=== PATIENT | male | born 1980 | race Caucasian/White ===

== ENCOUNTER 2018-10-09 21:33 | Inpatient (IN) ==
[2018-10-09] MEDS ORDERED: Aspirin 81 MG TAB.CHEW PO STA (22:08)
--- NOTE | 2018-10-09 22:22 | Emergency Department Note ---
Disposition Clinical Impression: Elevated troponin Disposition: Admitted As Inpatient Condition: Good Time of Disposition: 00:36 General Adult HPI - General Chief complaint: ED Chest Pain Stated complaint: Chest Pain/SNYDER/HTN Time Seen by Provider: 10/09/18 22:09 Source: patient Limitations: no limitations Nursing Notes Reviewed: Yes Vital Signs Reviewed: Yes - History of Present Illness HPI Narrative: 38-year-old male presenting to [facility] ED for one day history of headache associated with hypertension. Patient states that he has long-standing history of hypertension with recurrent headaches approximately once a week for the past 2 years. She states that he has past medical history of high blood pressure, sleep apnea, as well as chronic headaches denies any other past medical/surgical history no known drug allergies, is currently on no medications. Patient minutes to long-standing cardiac and cerebrovascular history as his grandfather of a cerebral aneurysm at 65 years old and his father had several heart attacks before having a quadruple bypass in his 40s. Patient noted to have blood pressure at home in the 180s systolic over 110 diastolic range with a pulse in the 60s. Patient states he was noted to come to the ED but was encouraged by his to do so. Onset (ago): hour(s) Location: head Pain Severity: moderate Pain Scale: 5 Quality: stabbing Consistency: intermittent Worsens with: rest - Related Data Previous Rx's Medication Instructions Recorded Meclizine [Antivert] 25 mg PO TID PRN #20 tablet 12/21/15 Ondansetron ODT [Zofran ODT] 4 mg SL Q8HR #14 tab.rapdis 12/21/15 Allergies Allergy/AdvReac Type Severity Reaction Status Date / Time No Known Allergies Allergy Verified 12/21/15 07:42 All systems ED: reviewed and negative except as stated. Review of Systems: As Per HPI Past Medical History - Past Medical History Medical history: Reports: no medical history, other Psychiatric history: Reports: no psych history - Social History Smoking Status: Never smoker Smokeless Tobacco Status: No Alcohol use: Reports: occasionally Drug use: Reports: none Physical Exam - General Limitations: no limitations General appearance: alert, in no apparent distress - Head Head exam: atraumatic, normocephalic, normal inspection - Eye Eye exam: Present: normal appearance, PERRL, EOMI. Absent: scleral icterus, conjunctival injection - Neck Neck exam: Present: normal inspection, trachea midline. Absent: thyromegaly - Chest Chest inspection: Present: normal inspection, symmetric chest wall rise - Respiratory Respiratory exam: Present: normal lung sounds bilaterally. Absent: respiratory distress, wheezes, stridor, accessory muscle use, prolonged expiratory phase - Cardiovascular Cardiovascular exam: Present: regular rate, normal rhythm, normal heart sounds, +S1, +S2. Absent: systolic murmur, diastolic murmur, JVD, +S3, +S4 - Abdominal Exam Abdominal exam: Present: soft, Non-Tender, normal bowel sounds. Absent: distention, guarding, rebound, rigidity, organomegaly - Neurological Exam Neurological exam: Present: alert, oriented X3 - Psychiatric Psychiatric exam: Present: normal affect, normal mood - Skin Skin exam: Present: warm, dry, intact, normal color. Absent: rash, cyanosis, diaphoresis, erythema, pallor, mottled Course Course Narrative: Patient with elevated troponin Spoke with Dr. Jay in cardiology who recommended heparinizing patient Confirmed with Dr. Sheridan he would like heparin started in light of patient's history of intermittent recurrent hematochezia Was advised by cardiology that as long as hemoglobin is stable and no active bleed heparin is appropriate for this patient Spoke with patient and regarding admission to the hospital as well as heparinization including risks and benefits Confirmed with patient that no recent episodes of nosebleed, hematochezia, hematuria, melena Patient and verbalize their understanding and agreement with this plan. Vital Signs Temperature 98.5 F 10/09/18 21:48 Pulse Rate 67 10/09/18 21:48 Respiratory Rate 16 10/09/18 21:48 Blood Pressure 177/117 10/09/18 21:48 O2 Sat by Pulse Oximetry 97 10/09/18 21:48 Temperature 98.5 F 10/09/18 21:48 Pulse Rate 62 10/09/18 23:00 Respiratory Rate 16 10/09/18 23:00 Blood Pressure 145/99 10/09/18 23:00 O2 Sat by Pulse Oximetry 97 10/09/18 23:00 Oxygen Delivery Oxygen Delivery Room Air Medical Decision Making - Lab Data Lab results reviewed: Yes I reviewed the patient's lab results. Result diagrams: 10/10/18 00:16 10/09/18 22:11 Lab Results 10/09/18 10/09/1819 Range/Units 22:11 22:11 00:16 WBC 7.6 7.3 (4.3-11.1) K/mcL RBC 4.96 4.93 (4.19-5.50) M/mcL Hgb 14.1 14.0 (12.9-16.9) g/dL Hct 42.9 42.4 (37.5-50.1) % MCV 86.5 86.0 (83.0-100.0) fL MCH 28.4 28.4 (28.0-33.3) pg MCHC 32.9 33.0 (31.6-35.5) g/dL RDW 13.0 13.0 (11.5-14.5) % Plt Count 248 245 (140-400) K/mcL MPV 9.7 9.5 (9.4-12.4) fL Immature Gran % 0.4 (0-4) % Seg Neutrophils % 44.8 % Lymphocytes % 43.5 % Monocytes % 8.7 % Eosinophils % 1.9 % Basophils % 0.7 % Neutrophils # 3.4 (1.6-8.9) K/mcL Lymphocytes # 3.3 (0.6-4.6) K/mcL Monocytes # 0.7 (0.0-1.3) K/mcL Eosinophils # 0.1 (0.0-0.6) K/mcL Basophils # 0.1 (0.0-0.2) K/mcL Sodium 139 (136-145) mEq/L Potassium 3.5 (3.5-5.1) mEq/L Chloride 103 (98-107) mEq/L Carbon Dioxide 29 (23-29) mEq/L BUN 14 (6-20) mg/dL Creatinine 1.08 (0.70-1.30) mg/dL Est GFR ( Amer) > 60 (> 60) Est GFR (Non-Af Amer) > 60 (> 60) BUN/Creatinine Ratio 13 (6-26) Glucose 99 (70-105) mg/dL Calculated Osmolality 289 (280-300) Calcium 9.2 (8.6-10.3) mg/dL Troponin I 0.08 H* (< 0.04) ng/mL - Radiology Data Radiology results reviewed: Yes I reviewed the patient's radiology results. Chest X-Ray 10/09/18 22:01 IMPRESSION: Negative portable study. D/ / Jaylin Rubi Cha, MD / Jaylin Rubi Cha, MD Interpreting Provider: Jaylin Rubi Cha, MD - EKG Data EKG #1 EKG attestation: Yes I reviewed and interpreted this EKG. EKG results narrative: Patient EKG shows a sinus rhythm with a heart rate of 63 bpm, MI interval of 146 ms, QRS duration 112 ms, QT/QTc interval 4-5/435 ms respectively. There are no significant ST segment elevations, depressions, pathologic Q waves, abnormal T waves, or any other signs of acute ischemic change. There are slight ST segment elevations in lead aVL but appear isolated to that lead without reciprocal change.
[2018-10-09 22:50] LABS: Basophils # 0.1 K/mcL (0.0-0.2); Basophils % 0.7 %; Eosinophils # 0.1 K/mcL (0.0-0.6); Eosinophils % 1.9 %; Hematocrit 42.9 % (37.5-50.1); Hemoglobin 14.1 g/dL (12.9-16.9); Immature Granulocytes % 0.4 % (0-4); Lymphocytes # 3.3 K/mcL (0.6-4.6); Lymphocytes % 43.5 %; Mean Corpuscular HGB Conc 32.9 g/dL (31.6-35.5); Mean Corpuscular Hemoglobin 28.4 pg (28.0-33.3); Mean Corpuscular Volume 86.5 fL (83.0-100.0); Mean Platelet Volume 9.7 fL (9.4-12.4); Monocytes # 0.7 K/mcL (0.0-1.3); Monocytes % 8.7 %; Neutrophils # 3.4 K/mcL (1.6-8.9); Platelet Count 248 K/mcL (140-400); Red Blood Count 4.96 M/mcL (4.19-5.50); Segmented Neutrophils % 44.8 %
[2018-10-09 23:11] LABS: BUN/Creatinine Ratio 13 (6-26); Blood Urea Nitrogen 14 mg/dL (6-20); Calcium 9.2 mg/dL (8.6-10.3); Carbon Dioxide 29 mEq/L (23-29); Chloride 103 mEq/L (98-107); Glucose 99 mg/dL (70-105); Osmolality,Calculated 289 (280-300); Potassium 3.5 mEq/L (3.5-5.1); Sodium 139 mEq/L (136-145); eGFR For Non-African Americans > 60 (> 60)
[2018-10-09 23:16] LABS: Troponin I 0.08 ng/mL (< 0.04)
[2018-10-09] MEDS ORDERED: *HR* Heparin 5,000 UNIT/ML VIAL IVP ONE (23:47)
--- NOTE | 2018-10-10 00:08 | Emergency Department Note ---
Disposition Clinical Impression: Elevated troponin Disposition: Admitted As Inpatient Condition: Good Referrals: April Rodriguez MD [Primary Care Provider] - Forms: ED Satisfaction Letter Chest Pain HPI - General Chief Complaint: ED Chest Pain Stated Complaint: Chest Pain/SNYDER/HTN Time Seen by Provider: 10/09/18 22:09 Source: patient Limitations: no limitations - History of Present Illness Severity scale (1-10): 5 - Related Data Previous Rx's Medication Instructions Recorded Meclizine [Antivert] 25 mg PO TID PRN #20 tablet 12/21/15 Ondansetron ODT [Zofran ODT] 4 mg SL Q8HR #14 tab.rapdis 12/21/15 Allergies Allergy/AdvReac Type Severity Reaction Status Date / Time No Known Allergies Allergy Verified 12/21/15 07:42 Chest Pain PMH - Past Medical History Medical history: Reports: no medical history, other Psychiatric history: Reports: no psych history - Social History Smoking Status: Never smoker Alcohol use: Reports: occasionally Drug use: Reports: none Physical Exam - General Limitations: no limitations General appearance: alert, in no apparent distress Course Vital Signs Temperature 98.5 F 10/09/18 21:48 Pulse Rate 67 10/09/18 21:48 Respiratory Rate 16 10/09/18 21:48 Blood Pressure 177/117 10/09/18 21:48 O2 Sat by Pulse Oximetry 97 10/09/18 21:48 Temperature 98.5 F 10/09/18 21:48 Pulse Rate 62 10/09/18 23:00 Respiratory Rate 16 10/09/18 23:00 Blood Pressure 145/99 10/09/18 23:00 O2 Sat by Pulse Oximetry 97 10/09/18 23:00 Oxygen Delivery Oxygen Delivery Room Air Chest Pain - Lab Data Result diagrams: 10/09/18 22:11 10/09/18 22:11 Lab Results 10/09/18 10/09/18 Range/Units 22:11 22:11 WBC 7.6 (4.3-11.1) K/mcL RBC 4.96 (4.19-5.50) M/mcL Hgb 14.1 (12.9-16.9) g/dL Hct 42.9 (37.5-50.1) % MCV 86.5 (83.0-100.0) fL MCH 28.4 (28.0-33.3) pg MCHC 32.9 (31.6-35.5) g/dL RDW 13.0 (11.5-14.5) % Plt Count 248 (140-400) K/mcL MPV 9.7 (9.4-12.4) fL Immature Gran % 0.4 (0-4) % Seg Neutrophils % 44.8 % Lymphocytes % 43.5 % Monocytes % 8.7 % Eosinophils % 1.9 % Basophils % 0.7 % Neutrophils # 3.4 (1.6-8.9) K/mcL Lymphocytes # 3.3 (0.6-4.6) K/mcL Monocytes # 0.7 (0.0-1.3) K/mcL Eosinophils # 0.1 (0.0-0.6) K/mcL Basophils # 0.1 (0.0-0.2) K/mcL Sodium 139 (136-145) mEq/L Potassium 3.5 (3.5-5.1) mEq/L Chloride 103 (98-107) mEq/L Carbon Dioxide 29 (23-29) mEq/L BUN 14 (6-20) mg/dL Creatinine 1.08 (0.70-1.30) mg/dL Est GFR ( Amer) > 60 (> 60) Est GFR (Non-Af Amer) > 60 (> 60) BUN/Creatinine Ratio 13 (6-26) Glucose 99 (70-105) mg/dL Calculated Osmolality 289 (280-300) Calcium 9.2 (8.6-10.3) mg/dL Troponin I 0.08 H* (< 0.04) ng/mL Attestation Statement - Attestation Attestation: I examined this patient and my medical decision-making was reviewed with the Resident Physician. I agree with the documented findings, disposition and treatment plan as described except to the extent set forth below. Patient presents with chest pain, pain-free at the time of my evaluation. Troponin 0.08. Nonischemic EKG. Dr. Martinez spoke with the nib finisher, who requested heparinization. He has had some intermittent bright red bleeding with bowel movements, but has not had this in the last couple of weeks. The nib finisher was aware of this and requested to have her be started. Vital signs remain stable in the emergency department. He is comfortable with the plan for admission.
[2018-10-10 00:31] LABS: Hematocrit 42.4 % (37.5-50.1); Mean Corpuscular Hemoglobin 28.4 pg (28.0-33.3); Mean Platelet Volume 9.5 fL (9.4-12.4); Platelet Count 245 K/mcL (140-400); Red Blood Count 4.93 M/mcL (4.19-5.50)
[2018-10-10 00:37] LABS: INR 1.1; Prothrombin Time 12.2 Seconds (9.4-12.1)
[2018-10-10] MEDS: Heparin 25,000 UNIT/250 ML D5W 25,000 UNIT/250 ML IV.SOLN IVC SCH (01:03)
--- NOTE | 2018-10-10 02:58 | Internal Med History&Physical ---
Date of Encounter: 10/10/18 Time of Encounter: 02:57 Internal Medicine - H&P: HPI Chief complaint: high bp Admitted From: Home Plans for Post Hospital Care: Home History of present illness: Sadi Barreto is a 38 year old man with hypertension who presented to the ER complaining of headache and elevated BP values which have been recurring issues for the past 2 years. His BP at home was 180/110 and was encouraged by his to come in for evaluation. On arrival it was 177/117. EKG showed a normal sinus rhythm but blood work revealed a troponin elevation of 0.08 x 2. Cardiology was consulted and recommended initiation of heparin drip. He has a strong family history of CAD in father. He tells me that on his way to the hospital he developed some chest pressure which has since subsided. He has not sought medical attention in a long time although these episodes of high BP and chest pressure have occurred a number of times. Vitals: Reviewed General: Obese white male lying omfortably in bed in NAD Skin: Warm and supple. HEENT: Moist mucous membranes. No conjunctivae pallor. Neck: No lymphadenopathy. No JVD. No carotid bruits. No palpable thyroid. Chest: Normal thoracic expansion. Normal breath sounds. Clear to auscultation. Heart: Normal S1 & S2; rhythmic. No rubs or murmurs. Abdomen: Non-distended, soft and non-tender to palpation. No peritoneal reaction. Extremities: No clubbing, cyanosis or edema. No calf tenderness. Normal distal pulses. Neurological: Awake, alert and oriented to person, place and time. No focal deficits. Psych: Affect appropriate. Assessment/Plan Elevated troponin: No clinical or electrocardiographic signs of ACS. His troponin is steady at 0.08 and we have no prior to which to compare to. Will keep him on heparin drip and obtain an echo in the morning as well as a stress test for further evaluation. Place on daily aspirin. Check A1C, TSH and lipid panel. Hypertensive urgency: Not seen to be taking any oral antihypertensives. Will start an oral regimen in him. Obesity: Counseled and educated on therapeutic lifestyle changes for weight loss as it will be of benefit in controlling comorbidities. 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 Past Med Surg Social Fam HX - Past Medical History Medical history: no medical history, hypertension, other Additional medical history: sleep apnea Psychiatric history: no psych history - Past Surgical History Surgical History: other Additional surgical history: oral surgery - Social History Smoking Status: Never smoker Smokeless Tobacco Status: No Alcohol use: occasionally Drug use: none Internal Medicine - H&P: Meds No Known Home Drugs 10/10/18 [History] Allergy/AdvReac Type Severity Reaction Status Date / Time No Known Allergies Allergy Verified 12/21/15 07:42 All Systems PM: A 10-system review of systems was performed and is negative for pertinent findings except as documented above in the HPI. - Constitutional Vitals: Temp Pulse Resp BP Pulse Ox 97.6 F 67 16 160/104 95 10/10/18 02:16 10/10/18 02:16 10/10/18 02:16 10/10/18 02:16 10/10/18 02:16 Exam: . Internal Med - H&P Results - Labs CBC & Chem 7: 10/10/18 00:16 10/09/18 22:11 Labs: Short CBC 10/09/18 10/10/18 Range/Units 22:11 00:16 WBC 7.6 7.3 (4.3-11.1) K/mcL Hgb 14.1 14.0 (12.9-16.9) g/dL Hct 42.9 42.4 (37.5-50.1) % Plt Count 248 245 (140-400) K/mcL Neutrophils # 3.4 (1.6-8.9) K/mcL BMP 10/09/18 22:11 Sodium 139 Potassium 3.5 Chloride 103 Carbon Dioxide 29 BUN 14 Creatinine 1.08 Glucose 99 Calcium 9.2 Cardiac Enzymes 10/09/18 10/10/18 Range/Units 22:11 00:16 Troponin I 0.08 H* 0.08 H* (< 0.04) ng/mL - Impressions ITS Impressions Chest X-Ray 10/09/18 22:01 IMPRESSION: Negative portable study. D/ / Jaylin Rubi Cha, MD / Jaylin Rubi Cha, MD Interpreting Provider: Jaylin Rubi Cha, MD - Time Spent With Patient Total time spent is greater than 50% in coordination of care (as documented) at patient's floor/unit and/or counseling patient: Greater than 35 minutes
[2018-10-10] MEDS ORDERED: Regadenoson 0.4 MG/5 ML SYRINGE IVP ONE (06:11)
[2018-10-10 07:11] LABS: Chol/HDL Ratio 5.2 (0-4.9); Estimated Average Glucose 137 mg/dl; Hemoglobin A1C 6.4 %
[2018-10-10 07:21] LABS: Thyroid Stimulating Hormone 2.755 mcIU/mL (0.340-5.600)
--- NOTE | 2018-10-10 09:04 | Internal Med Progress Note ---
<LinoFortunato S - Last Filed: 10/10/18 11:30> Hospitalist Progress Note - Encounter Date of Encounter: 10/10/18 Time of Encounter: 10:04 - Subjective Interval History: Pt seen at bedside. He just returned from his stress test part 1. He has no acute complaints or concerns. - Exam Vitals: Temp Pulse Resp BP Pulse Ox 97.6 F 71 19 132/86 93 10/10/18 07:06 10/10/18 07:06 10/10/18 07:06 10/10/18 07:06 10/10/18 07:06 Exam: . - Assessment and Plan (1) Elevated troponin Current Visit: Yes Status: Acute Assessment and Plan: Pt with dull, substernal chest pain relieved with rest in the setting of multiple risk factors and family hx of CAD Troponin 0.08 on admission, repeat 0.07 likely a type 2 in the setting of hypertensive urgency EKG negative for ST elevation or ischemia Plan: - cardiology consulted two part stress test planned, part one completed tomorrow AM plan for part two carvediol as per cardiology lipitor as per cardiology - continue norvasc for hypertension, ASA 81mg daily - continue heparin drip as per cardiology recommendations - continue telemetry monitoring - ECHO pending - encourage lifestyle modification, including control of pre-diabetes and weight control - FEN: cardiac diet, NPO at midnight - dispo: part two of stress test tomorrow AM, cardiology recommendations (2) Hypertensive urgency Current Visit: Yes Status: Acute Assessment and Plan: Pt w/o hx of taking anti-HTN - had chest pain, blurry vision on admission BP on admission 177/117, BP this AM 132/86 Plan: - continue norvasc - continue carvediol - plan to discharge the pt with PO anti-HTN regimen (3) Obesity Current Visit: No Status: Chronic Assessment and Plan: BMI 42.4, counseled. (4) DVT prophylaxis Current Visit: Yes Status: Acute Assessment and Plan: heparin drip (5) Chest pain Current Visit: Yes Status: Acute Assessment and Plan: See above. DVT Prophylaxis: heparin drip - Time Spent with Patient Total time spent is greater than 50% in coordination of care (as documented) at patient's floor/unit and/or counseling patient: 25 - 35 minutes Plan of Care Discussed with: patient Internal Medicine: Result - Labs CBC & Chem 7: 10/10/18 00:16 10/09/18 22:11 Labs: Short CBC 10/09/18 10/10/18 Range/Units 22:11 00:16 WBC 7.6 7.3 (4.3-11.1) K/mcL Hgb 14.1 14.0 (12.9-16.9) g/dL Hct 42.9 42.4 (37.5-50.1) % Plt Count 248 245 (140-400) K/mcL Neutrophils # 3.4 (1.6-8.9) K/mcL BMP 10/09/18 22:11 Sodium 139 Potassium 3.5 Chloride 103 Carbon Dioxide 29 BUN 14 Creatinine 1.08 Glucose 99 Calcium 9.2 Cardiac Enzymes 10/09/18 10/10/18 10/10/18 Range/Units 22:11 00:16 06:26 Troponin I 0.08 H* 0.08 H* 0.07 H* (< 0.04) ng/mL - ABG Interpretation ABG results: PT/INR, D-dimer PT 12.2 Seconds (9.4-12.1) H 10/10/18 00:16 - Impressions Impressions Chest X-Ray 10/09/18 22:01 IMPRESSION: Negative portable study. D/ / Jaylin Rubi Cha, MD / Jaylin Rubi Cha, MD Interpreting Provider: Jaylin Rubi Cha, MD Consult Discharge Plan - Plan Referrals: April Rodriguez MD [Primary Care Provider] - 10/15/18 8:20 am <Calvin Carnes - Last Filed: 10/10/18 17:16> Hospitalist Progress Note - Encounter Date of Encounter: 10/10/18 - Exam Vitals: Temp Pulse Resp BP Pulse Ox 98.0 F 76 18 150/105 96 10/10/18 17:13 10/10/18 17:13 10/10/18 17:13 10/10/18 17:13 10/10/18 17:13 - Time Spent with Patient Total time spent is greater than 50% in coordination of care (as documented) at patient's floor/unit and/or counseling patient: Internal Medicine: Result - Labs CBC & Chem 7: 10/10/18 00:16 10/09/18 22:11 Labs: Short CBC 10/09/18 10/10/18 Range/Units 22:11 00:16 WBC 7.6 7.3 (4.3-11.1) K/mcL Hgb 14.1 14.0 (12.9-16.9) g/dL Hct 42.9 42.4 (37.5-50.1) % Plt Count 248 245 (140-400) K/mcL Neutrophils # 3.4 (1.6-8.9) K/mcL BMP 10/09/18 22:11 Sodium 139 Potassium 3.5 Chloride 103 Carbon Dioxide 29 BUN 14 Creatinine 1.08 Glucose 99 Calcium 9.2 Cardiac Enzymes 10/09/18 10/10/18 10/10/18 Range/Units 22:11 00:16 06:26 Troponin I 0.08 H* 0.08 H* 0.07 H* (< 0.04) ng/mL - ABG Interpretation ABG results: PT/INR, D-dimer PT 12.2 Seconds (9.4-12.1) H 10/10/18 00:16 - Impressions Impressions Chest X-Ray 10/09/18 22:01 IMPRESSION: Negative portable study. D/ / Jaylin Rubi Cha, MD / Jaylin Rubi Cha, MD Interpreting Provider: Jaylin Rubi Cha, MD Echocardiogram 10/10/18 01:11 Impressions: LVEF 65%. Mild concentric left ventricular hypertrophy. Normal left ventricular diastolic function. Normal right ventricular structure and function. No evidence of pulmonary hypertension. No significant valvular dysfunction. Findings: Study Quality * Technically adequate exam. ECG Findings * Normal sinus rhythm. Left Ventricle * Mild concentric left ventricular hypertrophy. * Normal LV chamber size and systolic function. * Normal left ventricular diastolic function. * LVEF 65%. Right Ventricle * Normal right ventricular structure and function. Left Atrium * Normal left atrial size. Right Atrium * Normal right atrial size. Interatrial Septum * No evidence of PFO by color Doppler. Aortic Valve * Trileaflet aortic valve. * Normal aortic valve structure. * No aortic regurgitation. * No aortic stenosis. Mitral Valve * Normal mitral valve structure. * No mitral regurgitation. * No mitral stenosis. Tricuspid Valve * Normal tricuspid valve structure. * No evidence of pulmonary hypertension. * No tricuspid stenosis. * No tricuspid regurgitation. Pulmonic Valve * No pulmonic regurgitation. Aorta * Normally sized aortic root. Pericardium * The pericardium appears normal. IVC * The IVC is dilated. Pulmonary Artery * Normal visualized portions of the main pulmonary artery. - Attending Attestation I examined this patient and my medical decision-making was reviewed with the Res ident Physician. I agree with the documented findings, disposition and treatment plan as described except to the extent set forth below. <Fortunato Huynh S - Last Filed: 10/10/18 11:30> (3) Obesity Qualifiers: Obesity type: due to excess calories Obesity classification: adult class 3 (BMI >= 40) Serious obesity comorbidity presence: unspecified whether serious comorbidity present Body mass index: BMI 40.0-44.9 Qualified Code(s): E66.01 - Morbid (severe) obesity due to excess calories; Z68.41 - Body mass index (BMI) 40.0-44.9, adult (5) Chest pain Qualifiers: Chest pain type: unspecified Qualified Code(s): R07.9 - Chest pain, unspecified
[2018-10-10] MEDS: amLODIPine 5 MG TABLET PO SCH (10:04)
[2018-10-10] MEDS: Aspirin 81 MG TAB.CHEW PO SCH (10:04)
[2018-10-10 10:56] LABS: Heparin anti-factor XA UFH 0.06 IU/mL (0.30-0.70)
[2018-10-10 10:59] LABS: Activated Partial Thrombo Time 35.1 Seconds (26.0-36.0)
--- NOTE | 2018-10-10 11:00 | Cardiology Consult Note ---
<Cyndie Craft - Last Filed: 10/10/18 10:57> Date of Encounter: 10/10/18 Time of Encounter: 08:00 Assessment and Plan (1) Hypertensive urgency Current Visit: Yes Status: Acute Per cardiology: -Admitted with Hypertensive urgency. -BP 180/110 at home. -Patient was started on norvasc. -Will add coreg. -Continue to monitor BP. (2) Elevated troponin Current Visit: Yes Status: Acute Per cardiology: -Troponins 0.08 x2, 0.07, in the setting of hypertensive urgency. -Atypical chest pain. -Denies current chest pain. -TTE and 2 day stress pending. -On heparin drip, asa. -ECG with SR, no acute ischemic ECG changes noted. -Family history of premature CAD with father in his 40s requiring CABG. -Suspect demand ischemia. Further recs pending TTE and Stress. -Will add statin-LDL 114, and BB. Discussion w patient/family: The assessment and plan as outlined above was discussed with the patient who expressed understanding and agreement. All questions were answered. Thank you for involving us in the care of your patient. Please call with any questions. Discussed and reviewed with . History of Present Illness Consult date: 10/10/18 Requesting physician: Tyson Ann Consult reason: elevated troponin Chief complaint: high BP History of present illness: Mr. Barreto is a 38 year old male with a relevant past medical history of HTN, PIPO, family history of CAD with father in his 40s having CABG, who states he just wasn't feeling weel at home. States he felt weak, tired. States his checked his BP and it was 180/110 at home. States his then drove him to the ER. S tates on the way to the ER, he had chest tightness in the center of his chest while sitting in car. No radiation of pain. No shortness of breath. No nausea or diaphoresis. Patient denies current chest pain. Patient was seen and examined in stress lab. Past Med Surg Social Fam HX - Past Medical History Attestation: Yes The following information was validated with the patient. Source: patient Medical history: hypertension, other Additional medical history: sleep apnea Psychiatric history: no psych history - Past Surgical History Surgical History: other Additional surgical history: oral surgery - Social History Smoking Status: Never smoker Smokeless Tobacco Status: No Alcohol use: occasionally Drug use: none Medications and Allergies No Known Home Drugs 10/10/18 [History] Allergy/AdvReac Type Severity Reaction Status Date / Time No Known Allergies Allergy Verified 10/10/18 12:22 All Systems Review: The remainder of the systems were reviewed and are negative - Cardiovascular Cardiovascular: as per HPI, chest pain at rest Physical Examination Vital Signs, Last 4 Hours Temp Pulse Resp BP Pulse Ox 10/10/18 07:06 97.6 F 71 19 132/86 93 General: Conversant, No Apparent Distress HEENT: Atraumatic, Normocephaly, Mucus Membranes Moist Neck: No JVD, Normal carotid pulses Cardiac: Reg Rate and Rhythm, Normal S1 and S2, No Murmur Lungs: Normal Breath Sounds, No Wheeze, Rales, Rhonchi Neuro: Alert and responsive, No focal deficits noted Abdomen: Soft, Non-Tender Skin: No rashes noted on visualized skin Musculoskeletal: No Chest Wall Tenderness Extremities: No Clubbing, No Cyanosis, No Edema, Normal Pulses Results 10/10/18 00:16 10/09/18 22:11 Lab Results Impressions Chest X-Ray 10/09/18 22:01 IMPRESSION: Negative portable study. D/ / Jaylin Rubi Cha, MD / Jaylin Rubi Cha, MD Interpreting Provider: Jaylin Rubi Cha, MD Active Medications Amlodipine Besylate (Norvasc) 10 mg PO DAILY [facility]; Protocol Stop: 04/11/19 09:01 Last Admin: 10/10/18 10:04 Dose: 10 mg Aspirin (Aspirin) 81 mg PO DAILY [facility] Stop: 04/11/19 09:01 Last Admin: 10/10/18 10:04 Dose: 81 mg Atorvastatin Calcium (Lipitor) 40 mg PO HS [facility] Stop: 04/11/19 21:01 Carvedilol (Coreg) 3.125 mg PO BIDWM [facility]; Protocol Stop: 04/11/19 08:56 Last Admin: 10/10/18 10:04 Dose: 3.125 mg Heparin Sodium (Porcine) (Heparin) 4,000 unit IVP Q6HR PRN PRN Reason: SEE COMMENTS Stop: 04/10/19 23:48 Heparin Sodium (Porcine) (Heparin) 2,000 unit IVP Q6H PRN PRN Reason: SEE COMMENTS Stop: 04/10/19 23:48 Heparin Sodium/Dextrose (Heparin 25,000 Unit/250 Ml D5w) 25,000 unit in 250 mls @ 10.002 mls/hr IVC .Q24H [facility]; Protocol Stop: 04/10/19 23:46 Last Admin: 10/10/18 01:03 Dose: 10.5 unit/kg/hr, 10 mls/hr Laboratory Tests 10/09/18 10/10/18 10/10/18 22:11 00:16 00:16 Hgb 14.0 Creatinine 1.08 Hemoglobin A1c Troponin I 0.08 H* 0.08 H* LDL Cholesterol, Calc 10/10/18 10/10/18 10/10/18 06:26 06:26 06:26 Hgb Creatinine Hemoglobin A1c 6.4 H Troponin I 0.07 H* LDL Cholesterol, Calc 114 H - Imaging and Cardiology Chest Xray: report reviewed Stress Test: pending Echo: pending - EKG Interpretation EKG results cardiology: personally reviewed (ECG with SR, HR 63.), other (Telemetry reviewed with average HR previous 12 hours noted to be 67, SR. PVCs and PACs noted.) Consult Discharge Plan - Plan Referrals: April Rodriguez MD [Primary Care Provider] - 10/15/18 8:20 am <Purvi Mancia - Last Filed: 10/10/18 15:05> Date of Encounter: 10/10/18 - Attending Attestation I examined this patient and my medical decision-making was reviewed with the CN P. I agree with the documented findings, disposition and treatment plan as described. Mr. Barreto presented to the hospital with symptoms of feeling unwell. Noted to be hypertensive at home. Has not been wearing his CPAP for PIPO recently. Had one episode of chest tightness. No other symptoms. Troponins flat, adynamic in setting of acute hypertension. Stress testing ordered by primary team. Await results and echo findings. Further recommendations to follow testing. Assessment and Plan Discussion w patient/family: The assessment and plan as outlined above was discussed with the patient and/or family members who expressed understanding and agreement. All questions were answered. Thank you for involving us in the care of your patient. Please call with any questions. History of Present Illness History of present illness: Mr. Barreto is a 38 year old male All Systems Review: The remainder of the systems were reviewed and are negative Physical Examination Vital Signs, Last 4 Hours Temp Pulse Resp BP Pulse Ox 10/10/18 13:18 97.7 F 64 17 139/83 95 Results 10/10/18 00:16 10/09/18 22:11 Lab Results 10/09/18 10/09/18 10/10/18 22:11 22:11 00:16 WBC 7.6 Hgb 14.1 Hct 42.9 Plt Count 248 INR APTT Sodium 139 Potassium 3.5 Chloride 103 Carbon Dioxide 29 BUN 14 Creatinine 1.08 Glucose 99 Calcium 9.2 Troponin I 0.08 H* 0.08 H* TSH 10/10/18 10/10/18 10/10/18 00:16 00:16 06:26 WBC 7.3 Hgb 14.0 Hct 42.4 Plt Count 245 INR 1.1 APTT Sodium Potassium Chloride Carbon Dioxide BUN Creatinine Glucose Calcium Troponin I 0.07 H* TSH 10/10/18 10/10/18 06:26 10:30 WBC Hgb Hct Plt Count INR APTT 35.1 Sodium Potassium Chloride Carbon Dioxide BUN Creatinine Glucose Calcium Troponin I TSH 2.755
[2018-10-10] MEDS: *HR* Heparin 5,000 UNIT/ML VIAL IVP PRN ×2 (11:47→18:03)
[2018-10-10] MEDS ORDERED: Acetaminophen 325 MG TABLET PO PRN (16:19)
[2018-10-11 00:49] LABS: Basophils # 0.1 K/mcL (0.0-0.2); Basophils % 0.8 %; Eosinophils # 0.2 K/mcL (0.0-0.6); Eosinophils % 2.1 %; Hematocrit 43.4 % (37.5-50.1); Hemoglobin 14.4 g/dL (12.9-16.9); Immature Granulocytes % 0.6 % (0-4); Immature Platelets 2.6 % (1.1-6.1); Lymphocytes # 3.5 K/mcL (0.6-4.6); Lymphocytes % 43.7 %; Mean Corpuscular HGB Conc 33.2 g/dL (31.6-35.5); Mean Corpuscular Hemoglobin 28.3 pg (28.0-33.3); Mean Corpuscular Volume 85.4 fL (83.0-100.0); Mean Platelet Volume 9.9 fL (9.4-12.4); Monocytes # 0.7 K/mcL (0.0-1.3); Monocytes % 8.8 %; Neutrophils # 3.5 K/mcL (1.6-8.9); Platelet Count 237 K/mcL (140-400); Red Blood Count 5.08 M/mcL (4.19-5.50); Red Cell Distribution Width 13.1 % (11.5-14.5)
[2018-10-11 01:08] LABS: BUN/Creatinine Ratio 14 (6-26); Blood Urea Nitrogen 14 mg/dL (6-20); Calcium 9.5 mg/dL (8.6-10.3); Carbon Dioxide 28 mEq/L (23-29); Chloride 104 mEq/L (98-107); Glucose 105 mg/dL (70-105); Osmolality,Calculated 289 (280-300); Potassium 3.5 mEq/L (3.5-5.1); Sodium 139 mEq/L (136-145); eGFR For Non-African Americans > 60 (> 60)
[2018-10-11] MEDS: Heparin 25,000 UNIT/250 ML D5W 25,000 UNIT/250 ML IV.SOLN IVC SCH (01:10)
[2018-10-11] MEDS: *HR* Heparin 5,000 UNIT/ML VIAL IVP PRN ×2 (01:13→09:39)
[2018-10-11] MEDS: amLODIPine 5 MG TABLET PO SCH (08:39)
[2018-10-11] MEDS: Aspirin 81 MG TAB.CHEW PO SCH (08:39)
--- NOTE | 2018-10-11 10:51 | Event Note ---
Date of Encounter: 10/11/18 Time of Encounter: 10:50 - Cardiology Event Note Stress test resulted with no evidence of ischemia or infarct noted. TTE resulted with LVEF preserved, no wall motion abnormalities. Troponins demand ischemia secondary to hypertensive urgency. Recommend continuing asa, statin, BB. Car diology will sign off, re-consult if needed.
[2018-10-11 11:39] VITALS: BP 134/94
--- NOTE | 2018-10-11 12:08 | Discharge Summary ---
- NOTES TO OUTPATIENT PROVIDER Notes to Outpatient Provider: Monitor BP, pre-diabetes Orders not resulted at time of discharge: Pending orders 10/10/18 08:28 NM kierra perf SPECT multi [NM] Routine 10/11/18 15:45 Heparin anti-factor XA UFH [COAG] Timed Date of Encounter: 10/11/18 Time of Encounter: 12:06 - Discharge Diagnosis (1) Chest pain Priority: Primary Status: Acute Qualifiers: Chest pain type: unspecified Qualified Code(s): R07.9 - Chest pain, unspecified (2) Elevated troponin Priority: Secondary Status: Acute (3) Pre-diabetes Priority: Secondary Status: Acute (4) Hypertensive urgency Priority: Secondary Status: Acute Hospital course: Sadi Barreto is a 38 year old man with hypertension who presented to the ER complaining of headache and elevated BP values which have been recurring issues for the past 2 years. His BP at home was 180/110 and was encouraged by his to come in for evaluation. On arrival it was 177/117. EKG showed a normal sinus rhythm but blood work revealed a troponin elevation of 0.08 x 2. Cardiology was consulted and recommended initiation of heparin drip. He has a strong family history of CAD in father. He tells me that on his way to the hospital he developed some chest pressure which has since subsided. He has not sought medic al attention in a long time although these episodes of high BP and chest pressure have occurred a number of times. Patient was observed for elevated troponin and chest pain. Troponin trended down from 0.08 to 0.07 and he was chest pain free. He was started on Coreg and Norvasc and BP improved. Patient underwent stress test that was negative for ischemia. Patient likely had demand ischemia from hypertensive urgency. BP remained stable and he was discharged home in stable condition. A1C was 6.4%, discussed lifestyle changes. - Time Spent with Patient Total time spent providing and/or coordinating discharge services: - Discharge Medications Prescriptions: New amLODIPine [Norvasc] 10 mg PO DAILY 30 Days #30 tablet Aspirin 81 mg PO DAILY #30 tab.chew Atorvastatin [Lipitor] 40 mg PO HS #30 tablet Carvedilol [Coreg] 3.125 mg PO BIDWM #60 tablet Home Medications: Aspirin 81 mg PO DAILY #30 tab.chew 10/11/18 [Rx] Atorvastatin [Lipitor] 40 mg PO HS #30 tablet 10/11/18 [Rx] Carvedilol [Coreg] 3.125 mg PO BIDWM #60 tablet 10/11/18 [Rx] amLODIPine [Norvasc] 10 mg PO DAILY 30 Days #30 tablet 10/11/18 [Rx] Allergies/Adverse Reactions: Allergy/AdvReac Type Severity Reaction Status Date / Time No Known Allergies Allergy Verified 10/10/18 12:22 Date of admission: 10/10/18 01:11 Primary care physician: April Rodriguez MD Consults: 10/10/18 01:12 Consult to Cardiology [CONS] Routine Comment: Consulting Provider: Cardiology [place] Reason for Consult: patient with strong family hx started on heparin drip after presenting with headache and elevated BP and seen to have positive troponins Call Completed: Yes Discharging clinician: Calvin Carnes - Constitutional Vitals: Temp Pulse Resp BP Pulse Ox 98.2 F 66 17 134/94 96 10/11/18 11:35 10/11/18 11:35 10/11/18 11:35 10/11/18 11:35 10/11/18 11:35 Exam: . - Head Head exam: Present: atraumatic, normocephalic - Eye Eye exam: Present: PERRL, conjuntiva pink, sclera anicteric Pupils: Present: PERRL - Neck Neck exam general surgery: Present: supple, trachea midline. Absent: lymphadenopathy - Respiratory Respiratory exam: Present: CTAB. Absent: accessory muscle use, rales, rhonchi, wheezes - Cardiovascular Cardiovascular exam: Present: RRR, +S1, +S2. Absent: diastolic murmur, gallop, rubs, systolic murmur - GI/Abdominal GI/Abdominal exam: Present: normal bowel sounds, soft, no peritoneal signs. Absent: distended, tenderness - Extremities Exam Extremities exam: Present: warm, radial pulses palpable and symmetrical. Absent: calf tenderness, cyanotic, pedal edema - Neurological Exam Neurological exam: Present: CN II-XII intact, oriented X3, no focal deficits. Absent: pronater drift, facial droop, speech deficit - Skin Skin exam: Present: dry, intact - Patient Status Disposition: Home, Self-Care Condition: Good Functional capacity at discharge: independent ambulation Overall status at discharge: patient is back to baseline - Discharge Instructions Follow Up With: April Rodriguez MD [Primary Care Provider] - 10/15/18 8:20 am - Diet and Activity Activity: increase activity as tolerated Diet: low fat, low cholesterol, low salt diet
--- NOTE | 2018-10-11 23:06 | Electrocardiograph Report ---
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
--- NOTE | 2018-10-11 23:07 | Electrocardiograph Report ---
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
== END 2018-10-11 12:51 | disposition home or self-care (01) | DRG 305 ==
LOC: 3BNU 21:33 → EMEROOARM 21:33 → SUATTDRO 10-10 01:11 → 3BNU 10-10 01:55
PROVIDERS: ADMIT Internal Medicine; ATTEND Student in an Organized Health Care Education/Training Program